=== PATIENT | male | born 1985 | race Caucasian/White ===

== ENCOUNTER 2018-08-18 23:40 | Emergency (ER) | payer OTHER ==
[2018-08-19] MEDS ORDERED: IBUPROFEN 600 MG STARTER PACK 4 TAB BTL PO STA (00:53)
[2018-08-19] MEDS ORDERED: predniSONE 20 MG TAB PO STA (00:53)
[2018-08-19] MEDS ORDERED: IPRATROPIUM-ALBUTEROL 3 ML NEB INHALATION STA (00:55)
--- NOTE | 2018-08-19 00:59 | XR ---
EXAMINATION TYPE: XR chest 2V DATE OF EXAM: 08/19/2018 COMPARISON: NONE HISTORY: Fever and congestion TECHNIQUE: Frontal and lateral views of the chest are obtained. FINDINGS: Heart and mediastinum are normal. There is some patchy infiltrate in the anterior right mi ddle lobe best seen on the lateral view. The other lung marroquin are clear. Bony thorax is intact. Pulm onary vascularity is normal. IMPRESSION: Right middle lobe pneumonia.
--- NOTE | 2018-08-19 01:00 | ED ---
URI HPI - General Chief Complaint: Upper Respiratory Infection Stated Complaint: fever,congestion Time Seen by Provider: 08/18/18 23:59 Source: patient Mode of arrival: ambulatory Limitations: no limitations - History of Present Illness Initial Comments: Harry is a 33-year-old male who presents the emergency department today for evaluation of minimally productive cough and fever. Patient reports he's had bronchitis for approximately one month, he's been using when necessary albuterol inhaler and taking [id number] cough suppressants. Patient reports over the past 24 hours he's developed a fever and is really feeling run down. Patient reports that this happens to him every year and he requires treatment with antibiotics and steroids. Patient comes the ER today with concern that he is developing worsening bronchitis or pneumonia. Patient also states he did not get his flu shot this year. All of his family members did but most of them are also suffering from similar URI-like symptoms. - Related Data Home Medications Medication Instructions Recorded Confirmed Dextroamphetamine/Amphetamine 30 mg PO BID 04/19/15 04/19/15 [Adderall] Gabapentin 800 mg PO TID 04/19/15 04/19/15 Hydrocodone/Acetaminophen [[place] 1 each PO Q8HR PRN 04/19/15 04/19/15 7.5-325] Previous Rx's Medication Instructions Recorded Ofloxacin 0.3% Ophth Soln [Ocuflox 1 - 2 drops BOTH EYES QID #1 bottle 04/20/15 Ophth Soln] Azithromycin [Zithromax Z-pack] 0 mg PO DIRECTED #6 tab 08/19/18 predniSONE [Deltasone] 40 mg PO DAILY 5 Days #10 tablet 08/19/18 Allergies Allergy/AdvReac Type Severity Reaction Status Date / Time No Known Allergies Allergy Verified 08/18/18 23:48 Review of Systems ROS Statement: Those systems with pertinent positive or pertinent negative responses have been documented in the HPI. ROS Other: All systems not noted in ROS Statement are negative. Past Medical History Additional Past Medical History / Comment(s): chronic back pain History of Any Multi-Drug Resistant Organisms: None Reported Past Surgical History: No Surgical Hx Reported Past Psychological History: ADD/ADHD Smoking Status: Current every day smoker Past Alcohol Use History: Rare Past Drug Use History: None Reported General Exam - General Exam Comments Initial Comments: Physical Exam GENERAL: Patient is well-developed and well-nourished. Patient is nontoxic and well- hydrated and is in no distress. HENT: Normocephalic, Atraumatic. EYES: PERRL, EOMI PULMONARY: Coarse expiratory wheezing in all lung marroquin CARDIOVASCULAR: There is a regular rate and rhythm without any murmurs gallops or rubs. ABDOMEN: Soft and nontender with normal bowel sounds. SKIN: Skin is clear with no lesions or rashes and otherwise unremarkable. : Deferred NEUROLOGIC: Patient is alert and oriented x3. Moving all extremities spontaneously MUSCULOSKELETAL: Normal extremities with adequate strength and full range of motion. No lower extremity swelling or edema. No calf tenderness. PSYCHIATRIC: Normal psychiatric evaluation. Limitations: no limitations Limitations: no limitations Course Vital Signs 08/18/18 08/19/18 08/19/18 23:44 01:15 01:23 Temperature 100.8 F H Pulse Rate 122 H 94 96 Respiratory 20 20 18 Rate Blood Pressure 104/69 O2 Sat by Pulse 97 Oximetry 08/19/18 01:41 Temperature Pulse Rate 106 H Respiratory 17 Rate Blood Pressure 117/66 O2 Sat by Pulse 98 Oximetry Medical Decision Making - Medical Decision Making The patient was seen and evaluated, nursing notes and vital signs were reviewed Patient is febrile and mildly tachycardic History and physical exam are concerning for viral illness Breathing treatment Motrin and steroids were ordered X-rays concerning for right middle lobe pneumonia. These results were discussed with the patient. We'll give first dose of azithromycin as well as prednisone here in the ER. Considering the patient's tachycardia and fever I will order 1 L IV fluids for dehydration patient is agreeable. Patient will be discharged home on steroids and azithromycin. Return parameters were discussed all questions pertaining to care were answered patient was discharged home in stable condition. - Lab Data Lab Results 08/19/18 Range/Units 00:12 Influenza Type A RNA Not Detected (Not Detectd) Influenza Type B (PCR) Not Detected (Not Detectd) Disposition Clinical Impression: Pneumonia Disposition: HOME SELF-CARE Condition: Good Instructions: Community Acquired Pneumonia (DC), How to Stop Smoking (ED) Prescriptions: Azithromycin [Zithromax Z-pack] 0 mg PO DIRECTED #6 tab predniSONE [Deltasone] 40 mg PO DAILY 5 Days #10 tablet Is patient prescribed a controlled substance at d/c from ED?: No Referrals: Adrien Nails MD [Primary Care Provider] - 1-2 days Time of Disposition: 01:46
[2018-08-19] MEDS ORDERED: SODIUM CHLORIDE 0.9% 1,000 ML IV ONE (01:09)
[2018-08-19] MEDS ORDERED: AZITHROMYCIN 500 MG TAB PO STA (01:09)
[2018-08-19 02:41] VITALS: BP 112/58; PULSE 108; RESP 18; TEMP 100.4
== END 2018-08-19 02:41 | disposition home or self-care (01) ==
LOC: EC 23:40
DX: J18.9 Pneumonia, unspecified organism (principal); E86.0 Dehydration; R00.0 Tachycardia, unspecified; F90.9 Attention-deficit hyperactivity disorder, unspecified type; F17.200 Nicotine dependence, unspecified, uncomplicated; Z79.899 Other long term (current) drug therapy
CPT/HCPCS: 96360 ×2; 99284 ×2; 94640; 87502; 71046; J7512

== ENCOUNTER 2021-03-09 01:03 | Emergency (ER) | payer BC, OTHER ==
[2021-03-09 01:14] VITALS: BP 138/90; PULSE 81; RESP 19; TEMP 98.3
--- NOTE | 2021-03-09 01:36 | ED ---
Neck Injury/Pain HPI - General Chief Complaint: Neck Pain/Injury Stated Complaint: Neck Injury Time Seen by Provider: 03/09/21 01:15 Mode of arrival: ambulatory - Related Data Home Medications Medication Instructions Recorded Confirmed Dextroamphetamine/Amphetamine 30 mg PO BID 04/19/15 04/19/15 [Adderall] Gabapentin 800 mg PO TID 04/19/15 04/19/15 Hydrocodone/Acetaminophen [[place] 1 each PO Q8HR PRN 04/19/15 04/19/15 7.5-325] Previous Rx's Medication Instructions Recorded Ofloxacin 0.3% Ophth Soln [Ocuflox 1 - 2 drops BOTH EYES QID #1 bottle 04/20/15 Ophth Soln] Azithromycin [Zithromax Z-pack (6 0 mg PO DIRECTED #6 tab 08/19/18 tabs)] predniSONE [Deltasone] 40 mg PO DAILY 5 Days #10 tablet 08/19/18 Allergies Allergy/AdvReac Type Severity Reaction Status Date / Time No Known Allergies Allergy Verified 08/18/18 23:48 Review of Systems ROS Statement: Those systems with pertinent positive or pertinent negative responses have been documented in the HPI. ROS Other: All systems not noted in ROS Statement are negative. Past Medical History Additional Past Medical History / Comment(s): chronic back pain History of Any Multi-Drug Resistant Organisms: None Reported Past Surgical History: No Surgical Hx Reported Past Psychological History: ADD/ADHD Smoking Status: Current some day smoker, Vaper Past Alcohol Use History: Rare Past Drug Use History: None Reported Course Vital Signs 03/09/21 01:11 Temperature 98.3 F Pulse Rate 81 Respiratory 19 Rate Blood Pressure 138/90 O2 Sat by Pulse 98 Oximetry Disposition Referrals: Adrien Nails MD [Primary Care Provider] - 1-2 days
--- NOTE | 2021-03-09 01:48 | ED ---
Neck Injury/Pain HPI - General Chief Complaint: Neck Pain/Injury Stated Complaint: Neck Injury Time Seen by Provider: 03/09/21 01:15 Mode of arrival: ambulatory - History of Present Illness Initial Comments: 35-year-old male presents emergency Department with chief complaint of injury to his clavicle. Patient reports she was putting up a baby gate when it fell on him and caused a small abrasion along the left clavicle. Patient reports now he has pain to palpation to the region but denies any ecchymosis a small abrasion. States there was some bleeding which has since mostly resolved. Patient denies any difficulty breathing or swallowing. - Related Data Home Medications Medication Instructions Recorded Confirmed Dextroamphetamine/Amphetamine 30 mg PO BID 04/19/15 04/19/15 [Adderall] Gabapentin 800 mg PO TID 04/19/15 04/19/15 Hydrocodone/Acetaminophen [[place] 1 each PO Q8HR PRN 04/19/15 04/19/15 7.5-325] Previous Rx's Medication Instructions Recorded Ofloxacin 0.3% Ophth Soln [Ocuflox 1 - 2 drops BOTH EYES QID #1 bottle 04/20/15 Ophth Soln] Azithromycin [Zithromax Z-pack (6 0 mg PO DIRECTED #6 tab 08/19/18 tabs)] predniSONE [Deltasone] 40 mg PO DAILY 5 Days #10 tablet 08/19/18 Allergies Allergy/AdvReac Type Severity Reaction Status Date / Time No Known Allergies Allergy Verified 08/18/18 23:48 Review of Systems ROS Statement: Those systems with pertinent positive or pertinent negative responses have been documented in the HPI. ROS Other: All systems not noted in ROS Statement are negative. Past Medical History Additional Past Medical History / Comment(s): chronic back pain History of Any Multi-Drug Resistant Organisms: None Reported Past Surgical History: No Surgical Hx Reported Past Psychological History: ADD/ADHD Smoking Status: Current some day smoker, Vaper Past Alcohol Use History: Rare Past Drug Use History: None Reported General Exam Limitations: no limitations General appearance: alert, in no apparent distress Head exam: Present: atraumatic, normocephalic, normal inspection Eye exam: Present: normal appearance Pupils: Present: normal accommodation ENT exam: Present: normal exam, normal oropharynx, mucous membranes moist Neck exam: Present: tenderness (Tenderness over the left clavicle), full ROM. Absent: normal inspection (Small abrasion over the left clavicle) Respiratory exam: Present: normal lung sounds bilaterally. Absent: respiratory distress Cardiovascular Exam: Present: regular rate, normal rhythm, normal heart sounds. Absent: systolic murmur Extremities exam: Present: normal inspection, full ROM. Absent: tenderness Back exam: Present: normal inspection, full ROM. Absent: tenderness Neurological exam: Present: alert, oriented X3 Psychiatric exam: Present: normal affect, normal mood Skin exam: Present: warm, dry, intact, normal color Course Vital Signs 03/09/21 01:11 Temperature 98.3 F Pulse Rate 81 Respiratory 19 Rate Blood Pressure 138/90 O2 Sat by Pulse 98 Oximetry Medical Decision Making - Medical Decision Making 35-year-old male presents to emergency Department with a chief complaint of clavicle pain. Physical examination, he has an abrasion and some tenderness over the left clavicle. X-ray shows no acute findings. Patient was advised to apply some hours compress to the region. Return parameters were discussed with patient is a 72 ingrown. Case discussed physician. Disposition Clinical Impression: Skin abrasion Disposition: HOME SELF-CARE Condition: Stable Instructions (If sedation given, give patient instructions): Abrasion (ED) Additional Instructions: Please return to the Emergency Department if symptoms worsen or any other concerns. Is patient prescribed a controlled substance at d/c from ED?: No Referrals: Adrien Nails MD [Primary Care Provider] - 1-2 days Time of Disposition: 02:14
--- NOTE | 2021-03-09 01:54 | XR ---
EXAMINATION TYPE: XR clavicle LT DATE OF EXAM: 03/09/2021 COMPARISON: NONE HISTORY: Pain. Trauma. TECHNIQUE: 2 views FINDINGS: I see no fracture nor dislocation. AC joint is intact. The shoulder joint appears intact. IMPRESSION: Negative left clavicle exam.
== END 2021-03-09 02:22 | disposition home or self-care (01) ==
LOC: EC 01:03
DX: S10.91XA Abrasion of unspecified part of neck, initial encounter (principal); F17.290 Nicotine dependence, other tobacco product, uncomplicated; W22.8XXA Striking against or struck by other objects, initial encounter
CPT/HCPCS: 99283

== ENCOUNTER 2021-10-16 09:17 | Day surgery (SDC) | payer BC ==
[2021-10-15 08:25] VITALS: BMI 23.3
[~2021-10-16 09:17] MED LIST: LACTATED RINGERS 1,000 ML IV SCH; LIDOCAINE 1% (10MG/ML) FOR IV START INTRADERMA PRN
[2021-10-16 09:44] VITALS: RESP 16; TEMP 97.5
[2021-10-16] MEDS ORDERED: LIDOCAINE 1% INJ 10MG/ML (20 ML MDV) ONE (09:57)
[2021-10-16] MEDS ORDERED: PROPOFOL 10 MG/ML 20 ML VIAL IV ONE (09:57)
--- NOTE | 2021-10-16 10:00 | P.GSHP ---
History of Present Illness H&P Date: 10/16/21 Chief Complaint: Anemia This a 36-year-old male presents today for EGD and colonoscopy. Patient has issues with anemia. Past Medical History Past Medical History: Asthma, Hyperlipidemia, Osteoarthritis (OA) Additional Past Medical History / Comment(s): Hx Asthma as a child. Chronic back pain. States "thinl I have Acid Reflux and Sleep Apnea but have not been diagnosed." History of Any Multi-Drug Resistant Organisms: None Reported Past Surgical History: No Surgical Hx Reported Additional Past Surgical History / Comment(s): Dental work. Past Anesthesia/Blood Transfusion Reactions: No Reported Reaction Past Psychological History: ADD/ADHD Additional Psychological History / Comment(s): ADHD. Smoking Status: Vaper Past Alcohol Use History: None Reported Past Drug Use History: None Reported - Past Family History Father Family Medical History: Cancer Medications and Allergies Home Medications Medication Instructions Recorded Confirmed Type Gabapentin 800 mg PO TID 04/19/15 10/16/21 History traMADol HCL 50 mg PO TID 10/15/21 10/16/21 History Allergies Allergy/AdvReac Type Severity Reaction Status Date / Time No Known Allergies Allergy Verified 10/16/21 09:32 Surgical - Exam Vital Signs Temp Pulse Resp BP Pulse Ox 97.5 F L 63 16 146/86 99 10/16/21 09:35 10/16/21 09:35 10/16/21 09:35 10/16/21 09:35 10/16/21 09:35 - General well developed, well nourished, no distress - Eyes PERRL - ENT normal pinna - Neck no masses - Respiratory normal expansion - Cardiovascular Rhythm: regular - Abdomen Abdomen: soft, non tender Assessment and Plan Assessment: Anemia. We'll perform EGD and colonoscopy.
--- NOTE | 2021-10-16 10:19 | P.OP ---
Date of Procedure: 10/16/21 Preoperative Diagnosis: Anemia Postoperative Diagnosis: Mild antral gastritis Procedure(s) Performed: EGD Colonoscopy Anesthesia: ABDI Surgeon: Charlie Young Pathology: other (Antrum) Condition: stable Disposition: PACU Operative Findings: The patient's placed on the endoscopy table in the lateral position. He received IV sedation. Gastroscope placed oropharynx passed in the esophagus into the stomach. Scope was then placed through the pylorus. The first and second portion of duodenum appeared normal. Scope was then brought back the antrum this appeared minimally inflamed. A biopsies performed. Scope was then retroflexed and the remainder of the stomach appeared normal. The GE junction was at 40 cm. The distal esophagus appeared normal. The proximal esophagus appeared normal. The scope was withdrawn for patient. There was no evidence of any upper GI bleed source. Next digital rectal exam was performed, this was within normal limits. Flexible colonoscope was then placed patient anus and passed throughout the entire colon. The ileocecal valve was visualized. The cecum, ascending and transverse colon appeared normal. The descending and sigmoid colon normal. The rectum was normal. There is no evidence of blood in the colon. Scope withdrawn for patient. There is no evidence of any blood in the upper or lower GI tract.
[2021-10-16 10:43] VITALS: BP 121/60; PULSE 64
== END 2021-10-16 11:03 | disposition home or self-care (01) ==
LOC: ORWHC2ENDO 09:17
PROVIDERS: ATTEND Surgery
DX: K31.9 Disease of stomach and duodenum, unspecified (principal); K29.70 Gastritis, unspecified, without bleeding; D64.9 Anemia, unspecified; E78.5 Hyperlipidemia, unspecified; K21.9 Gastro-esophageal reflux disease without esophagitis; M19.90 Unspecified osteoarthritis, unspecified site; F90.9 Attention-deficit hyperactivity disorder, unspecified type; G89.29 Other chronic pain; M54.9 Dorsalgia, unspecified; Z98.890 Other specified postprocedural states; Z87.09 Personal history of other diseases of the respiratory system; F17.290 Nicotine dependence, other tobacco product, uncomplicated; Z80.9 Family history of malignant neoplasm, unspecified; Z79.891 Long term (current) use of opiate analgesic; Z79.899 Other long term (current) drug therapy
CPT/HCPCS: 88305; 45378; 43239; J2001; J2704

== ENCOUNTER → 2023-07-21 | Outpatient (CLI) | payer BC ==
--- NOTE | 2023-07-24 07:14 | MR ---
EXAMINATION: MR forearm RT wo con DATE OF EXAM: 07/21/2023 COMPARISON: Right elbow radiograph 07/19/2023 HISTORY: Pain, swelling, mass right elbow, proximal forearm x1 year TECHNIQUE: Multiplanar, multisequence images of the right forearm were acquired without contrast. FINDINGS: BONES/MARROW: Normal bone marrow signal. SOFT TISSUES: Skin marker placed over the antecubital fossa. Subjacent to this, there is irregular si gnal of the biceps tendon, but evaluated on dedicated elbow MRI obtained concomitantly. Remainder of the myotendinous structures of the forearm are normal. No anatomic variant. No bursal distention. No fluid collection. NEUROVASCULAR: Visualized neurovascular structures are normal. OTHER: Normal. No mass. No lymphadenopathy. IMPRESSION: 1. Signal changes consistent with biceps tendon pathology, refer to MRI elbow report 2. Remainder of the right forearm is normal.
--- NOTE | 2023-07-24 07:33 | MR ---
EXAMINATION TYPE: MR elbow RT wo con DATE OF EXAM: 07/21/2023 COMPARISON: Right elbow radiographs 07/19/2023 HISTORY: Pain, swelling, mass right elbow, proximal forearm x1 year, TECHNIQUE: Multiplanar, multisequence images of the right elbow were acquired without contrast. FINDINGS: BONES/JOINTS: Bone marrow signal is normal. Joint spaces are maintained. Articular cartilage is karen l. No joint effusion. LIGAMENTS: The medial ligamentous structures, including the ulnar collateral ligament, are intact. La teral ligamentous structures are intact. TENDONS: Partial tear of the distal biceps tendon; this tear primarily involves the tendon from the l torsten head of the biceps brachia and is retracted proximally 1.4 cm. Small amount of fluid and edema avila rrounds the biceps tendon. The brachialis tendon is intact. Distal triceps tendon is intact. Intrasub stance tear involving the common extensor tendon origin. The common flexor tendon is normal. NEUROVASCULAR: Normal neurovascular structures. Cubital tunnel is normal. SOFT TISSUES: Normal. No bursal distention. IMPRESSION: 1. Partial tear of the distal biceps tendon. 2. Intrasubstance tear of the common extensor tendon origin.
== END | disposition home or self-care (01) ==
LOC: RADMRIMAIN 21:15
PROVIDERS: ATTEND Orthopaedic Surgery
DX: M66.821 Spontaneous rupture of other tendons, right upper arm (principal); M25.521 Pain in right elbow